=== PATIENT | female | born 1960 | race Native Hawaiian/Other Pacific Islander ===

== ENCOUNTER 2019-05-07 08:50 | Day surgery (SDC) | payer OTHER ==
[~2019-05-07] VITALS: Ht 30.5 cm; Wt 0.5 kg
== END 2019-05-07 10:17 | disposition home or self-care (01) ==
LOC: OR 08:50
PROC: 3E0R33Z Introduction of Anti-inflammatory into Spinal Canal, Percutaneous Approach (ICD-10-PCS; principal; 2019-05-07)
PROC: B01BYZZ Fluoroscopy of Spinal Cord using Other Contrast (ICD-10-PCS; 2019-05-07)
DX: M50.123 Cervical disc disorder at C6-C7 level with radiculopathy (principal)
CPT/HCPCS: J1020

== ENCOUNTER 2019-07-08 07:40 | Day surgery (SDC) | payer OTHER | END 2019-07-08 09:25 | disposition home or self-care (01) | LOC: OR 07:40 | PROC: 009U3ZX Drainage of Spinal Canal, Percutaneous Approach, Diagnostic (ICD-10-PCS; principal; 2019-07-08) | PROC: 00JU3ZZ Inspection of Spinal Canal, Percutaneous Approach (ICD-10-PCS; 2019-07-08) | PROC: B01BYZZ Fluoroscopy of Spinal Cord using Other Contrast (ICD-10-PCS; 2019-07-08) | DX: R51 Headache (principal); R26.0 Ataxic gait | CPT/HCPCS: 82945; 84155; 86592; 87070; 87101; 87116; 87205; 87206; 87899; 89050 ==

== ENCOUNTER 2019-09-23 07:31 | Day surgery (SDC) | payer OTHER | END 2019-09-23 09:40 | disposition home or self-care (01) | LOC: OR 07:31 | PROC: 3E0R33Z Introduction of Anti-inflammatory into Spinal Canal, Percutaneous Approach (ICD-10-PCS; principal; 2019-09-23) | PROC: B01BYZZ Fluoroscopy of Spinal Cord using Other Contrast (ICD-10-PCS; 2019-09-23) | DX: M50.123 Cervical disc disorder at C6-C7 level with radiculopathy (principal) | CPT/HCPCS: J1020 ==